=== PATIENT | female | born 1980 | race Caucasian/White ===

== ENCOUNTER 2016-06-29 09:38 | Emergency (ER) | payer OTHER ==
[~2016-06-29] VITALS: Ht 162.6 cm; Wt 75.5 kg
[~2016-06-29 09:38] MED LIST: ALPRAZOLAM0.5 MG PO; AMBIEN10 MG PO; AMLODIPINE BESY10 MG PO; AMLODIPINE BESYL5 MG PO; BACLOFEN10 MG PO; ESZOPICLONE3 MG PO; FENTANYL1 EAC1 TD; FOLIC ACID1 MG PO; GEODON20 MG PO; LITHIUM CARBON300 MG PO; MACROBID100 MG PO; METHOTREXATE2.5 MG PO; OTEZLA30 MG PO; OXYCODONE-APAP1 EACH PO; PROMETHAZINE HC25 M1 PO; PYRIDIUM100 MG PO; REMICADE10 MG/ML IV; SPRIX1 EACH BOTH NARES; TIZANIDINE HCL4 MG PO; TOPAMAX100 MG PO; TOPIRAMATE25 MG PO; TREXALL7.5 MG PO; VALIUM10 MG PO; VIIBRYD40 MG PO; ZIPRASIDONE HCL80 MG PO; ZOFRAN8 MG PO
[2016-06-29] MEDS ORDERED: PERCOCET 10/1 TABLET PO (12:02)
[2016-06-29 12:10] VITALS: BP 142/101
== END 2016-06-29 12:12 | disposition home or self-care (01) ==
LOC: EME 09:38
DX: M54.9 Dorsalgia, unspecified (principal); Z76.0 Encounter for issue of repeat prescription; W10.9XXA Fall (on) (from) unspecified stairs and steps, initial encounter; Y92.009 Unspecified place in unspecified non-institutional (private) residence as the place of occurrence of the external cause; G89.29 Other chronic pain; Z79.891 Long term (current) use of opiate analgesic; I10 Essential (primary) hypertension; F17.200 Nicotine dependence, unspecified, uncomplicated; Z71.6 Tobacco abuse counseling
CPT/HCPCS: 99281; 99283

== ENCOUNTER 2017-04-11 14:05 | Emergency (ER) | payer OTHER ==
[~2017-04-11] VITALS: Ht 162.6 cm; Wt 81.4 kg
[~2017-04-11 14:05] MED LIST changes: +PERCOCET 10/1 TABLET PO
[2017-04-11 16:55] VITALS: BP 135/93
[2017-04-11 17:34] LABS: ADD MIUA? YES; BILIRUBIN NEGATIVE; BLOOD NEGATIVE; COLOR YELLOW ((YELLOW)); GLUCOSE (STRIP) NEGATIVE; KETONES 5; LEUKOCYTES TRACE; NITRITE NEGATIVE; PROTEIN (STRIP) 30; SPECIFIC GRAVITY 1.019 (1.000-1.030); UROBILINOGEN 0.2 MG/DL (0.2-1.0)
[2017-04-11 17:35] LABS: INTERNAL CONTROL VALID? YES
[2017-04-11 17:40] LABS: BACTERIA 2+ /HPF; EPITHELIAL CELLS 1+ /HPF; MUCUS 2+ /LPF; RED BLOOD CELLS 0-5 /HPF (0-5); UCUL ADDED? YES; WHITE BLOOD CELLS 0-5 /HPF (0-5)
[2017-04-11 17:41] LABS: AMPHETAMINE NEGATIVE (500 ng/mL); BENZODIAZEPINES PRESUMPTIVE POSITIVE (150 ng/mL); COCAINE NEGATIVE (150 ng/mL); METHADONE NEGATIVE (200 ng/mL); METHAMPHETAMINE NEGATIVE (500 ng/mL); OPIATES (MORPHINE) NEGATIVE (100 ng/mL); PHENCYCLIDINE NEGATIVE (25 ng/mL); THC CANNABINOIDS NEGATIVE (50 ng/mL); TRICYCLIC ANTIDEPRESSANTS NEGATIVE (300 ng/mL)
[2017-04-11 17:42] LABS: ADD MEDTOX COMMENT Y; BARBITURATES NEGATIVE (200 ng/mL); INTERNAL CONTROLS VALID? YES; OXYCODONE PRESUMPTIVE POSITIVE (100 ng/mL); PROPOXYPHENE NEGATIVE (300 ng/mL)
[2017-04-11] MEDS ORDERED: MOTRIN800 MG PO (18:11)
[2017-04-11] MEDS ORDERED: LIDODERM 5% P1 PATCH TD (18:12)
[2017-04-11] MEDS ORDERED: FLEXERIL10 MG PO (18:12)
[2017-04-11 18:16] LABS: BENZODIAZEPINES, URINE SCREEN POSITIVE (200 ng/mL)
== END 2017-04-11 18:45 | disposition home or self-care (01) ==
LOC: EME 14:05
PROVIDERS: Nurse Practitioner Family
DX: M54.5 Low back pain (principal); M54.6 Pain in thoracic spine; G89.29 Other chronic pain; F90.9 Attention-deficit hyperactivity disorder, unspecified type; F17.200 Nicotine dependence, unspecified, uncomplicated; Z98.1 Arthrodesis status; Z90.710 Acquired absence of both cervix and uterus; Z90.49 Acquired absence of other specified parts of digestive tract; Z88.5 Allergy status to narcotic agent; Z88.6 Allergy status to analgesic agent
CPT/HCPCS: 72070; 72100; 81003; 84703; 84999; 87086; 99281; 99284

== ENCOUNTER 2017-12-26 18:15 | Emergency (ER) | payer OTHER ==
[~2017-12-26] VITALS: Ht 162.6 cm; Wt 75.5 kg
[~2017-12-26 18:15] MED LIST changes: +FLEXERIL10 MG PO; +LIDODERM 5% P1 PATCH TD; +MOTRIN800 MG PO
[2017-12-26 18:20] VITALS: BP 141/93
== END 2017-12-26 19:49 | disposition left against medical advice (07) ==
LOC: EME 18:15
DX: R51 Headache (principal); I10 Essential (primary) hypertension; G43.909 Migraine, unspecified, not intractable, without status migrainosus; L40.50 Arthropathic psoriasis, unspecified; F41.9 Anxiety disorder, unspecified; F32.9 Major depressive disorder, single episode, unspecified; F17.200 Nicotine dependence, unspecified, uncomplicated; Z98.1 Arthrodesis status; Z90.49 Acquired absence of other specified parts of digestive tract; Z90.711 Acquired absence of uterus with remaining cervical stump; Z98.51 Tubal ligation status; Z88.5 Allergy status to narcotic agent; Z88.8 Allergy status to other drugs, medicaments and biological substances
CPT/HCPCS: 99281; 99283